=== PATIENT | female | born 1965 | race Caucasian/White ===

== ENCOUNTER 2017-02-16 07:59 | Emergency (ER) | payer OTHER ==
[2017-02-16 08:05] VITALS: BP 100/60; PULSE 66; BMI 26.4
[2017-02-16] MEDS ORDERED: diphenhydrAMINE HCL 25 MG CAPSULE (FP) PO ONE ×2 (08:44→09:00)
--- NOTE | 2017-02-16 08:45 | PDOC ---
History of Present Illness - General Chief Complaint: Allergic Reaction Stated Complaint: Allergic Reaction Time Seen by Provider: 02/16/17 08:23 History Source: Patient Exam Limitations: No Limitations - History of Present Illness Initial Comments: 02/16/17 08:46 Timing/Duration: unsure, 24 hours Severity: mild Associated Symptoms: reports: denies symptoms. denies: cough, fever/chills, headaches Past History - Travel Traveled outside of the country in the last 30 days: No Close contact w/someone who was outside of country & ill: No - Past Medical History Allergies/Adverse Reactions: Allergies Allergy/AdvReac Type Severity Reaction Status Date / Time No Known Allergies Allergy Verified 02/16/17 08:05 Home Medications: Ambulatory Orders Diphenhydramine HCl [Benadryl -] 25 mg PO Q8H PRN #21 capsule 02/16/17 Nitrofurantoin Monohyd/M-Cryst [Macrobid -] 100 mg PO BID 02/16/17 Other medical history: NONE - Suicide/Smoking/Psychosocial Hx Smoking History: Never smoked Hx Alcohol Use: No Drug/Substance Use Hx: No Substance Use Type: None Review of Systems - Review of Systems Able to Perform ROS?: Yes Is the patient limited [place] proficient: Yes Constitutional: Yes: Symptoms Reported, See HPI, Malaise. No: Fever HEENTM: Yes: See HPI. No: Symptoms Reported, Nose Congestion, Throat Swelling, Difficulty Swallowing, Mouth Swelling Respiratory: Yes: See HPI. No: Symptoms reported, Cough, Wheezing : Yes: See HPI. No: Symptoms Reported, Burning, Dysuria, Discharge (improved) Integumentary: Yes: Symptoms Reported, See HPI, Pruritus, Rash Neurological: No: Symptoms reported All Other Systems: Reviewed and Negative *Physical Exam - Vital Signs Last Vital Signs Temp Pulse Resp BP Pulse Ox 66 20 100/60 98 02/16/17 08:02 02/16/17 08:02 02/16/17 08:02 02/16/17 08:02 - Physical Exam General Appearance: Yes: Nourished, Appropriately Dressed, Apparent Distress, Mild Distress HEENT: positive: ALIYAH, Normal ENT Inspection, TMs Normal, Pharynx Normal Neck: positive: Supple. negative: Tender Respiratory/Chest: positive: Lungs Clear. negative: Chest Tender Gastrointestinal/Abdominal: positive: Tender, Soft Extremity: positive: Normal Capillary Refill, Normal Range of Motion. negative : Tender Integumentary: positive: Normal Color, Warm, Rash (9 maculopapular rash on forearms and some noticed on knees, no obvious hives, no swelling, no vesicular lesions.) Neurologic: positive: document preparer microfilming II-XII NML intact, Fully Oriented, Alert, Normal Mood/ Affect, Normal Response, Motor Strength 5/5 *DC/Admit/Observation/Transfer Diagnosis at time of Disposition: Allergic reaction caused by a drug Qualifiers: Encounter type: initial encounter Qualified Code(s): T78.40XA - Allergy, unspecified, initial encounter; T78.40XA - Allergy, unspecified, initial encounter - Discharge Dispostion Disposition: HOME Condition at time of disposition: Stable Admit: No - Patient Instructions Printed Discharge Instructions: DI for Adverse Drug Reaction -- Allergic Additional Instructions: Stop Antibiotic Use Benadryl for itching Drink lots of fluids, Water/Soups /Teas See PMD in 2-3 days for repeat urinalysis,
== END 2017-02-16 09:07 | disposition home or self-care (01) ==
LOC: JERFT 07:59
DX: T78.40XA Allergy, unspecified, initial encounter (principal)
CPT/HCPCS: 99281-25